=== PATIENT | male | born 1980 | race Two or more races ===

== ENCOUNTER 2024-08-01 21:44 | Emergency (ER) | payer MEDICAID, OTHER ==
[~2024-08-01] VITALS: Ht 190.5 cm; Wt 176.6 kg
--- NOTE | 2024-08-01 22:21 | ED.PDOC ---
Musculoskeletal HPI Comments 44 year old male presents to the ED with chief complaint of right leg swelling. 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 Patient relays that he started to experience right lower leg swelling and pain since earlier today. Patient denies any numb ness, weakness, chest pain, SOB, dizziness, or headache. Time Seen by MD: 22:15 Reviewed Notes: Nurses Notes, Medications, Allergies Allergies: Coded Allergies: Latex (Verified Allergy, Unknown, 08/01/24) Information Source: Patient Mode of Arrival: Ambulatory Location: Right Extremity Location: Leg Timing: Hours Prehospital treatment: None Severity: Moderate Able to Move Extremity: Yes Bear Weight: Limited Pain: Moderate Mechanism: Spontaneous Circumstances: Spontaneous Onset of Symptoms: Spontaneous Symptoms: Swelling, Pain DVT Risk Factors: DVT Last Tetanus: Unknown Past Medical History Past Medical History (Other): DVTs Surgical History: Denies all surgeries Family History Family History: Reviewed,noncontributory to illness Social History Smoker: Non-Smoker Alcohol: Denies ETOH Use Drugs: Denies Drug Use Lives In: Home Constitutional: denies: chills, diaphoresis, fatigue, fever, malaise, sweats, weakness, others EENTM: denies: blurred vision, double vision, ear bleeding, ear discharge, ear drainage, ear pain, ear ringing, eye pain, eye redness, hearing loss, mouth pain, mouth swelling, nasal discharge, nose bleeding, nose congestion, nose pain, photophobia, tearing, throat pain, throat swelling, voice changes, others Respiratory: denies: cough, hemoptysis, orthopnea, SOB at rest, shortness of breath, SOB with excertion, stridor, wheezing, others Cardiovascular: denies: chest pain, dizzy spells, diaphoresis, Dyspnea on exertion, edema, irregular heart beat, left arm pain, lightheadedness, palpitations, PND, syncope, others Gastrointestinal: denies: abdomen distended, abdominal pain, blood streaked bowels, constipated, diarrhea, dysphagia, difficulty swallowing, hematemesis, melena, nausea, poor appetite, poor fluid intake, rectal bleeding, rectal pain, vomiting, others Genitourinary: denies: burning, dysuria, flank pain, frequency, hematuria, incontinence, penile discharge, penile sore, pain, testicle pain, testicle swelling, urgency, others Neurological: denies: dizziness, fainting, headache, left sided numbness, left sided weakness, numbness, paresthesia, pre-existing deficit, right sided numbness, right sided weakness, seizure, speech problems, tingling, tremors, weakness, others Musculoskeletal: reports: others (Right lower leg pain and swelling); denies: back pain, gout, joint pain, joint swelling, muscle pain, muscle stiffness, neck pain Integumetry: denies: bruises, change in color, change in hair/nails, dryness, laceration, lesions, lumps, rash, wounds, others Allergic/Immunocompromised: denies: Difficulty Healing, Frequent Infections, Hives, Itching, others Hematologic/Lymphatic: denies: anemia, blood clots, easy bleeding, easy bruising, swollen glands, others Endocrine: denies: excessive hunger, excessive sweating, excessive thirst, excessive urination, flushing, intolerance to cold, intolerance to heat, unexplained weight gain, unexplained weight loss, others Psychiatric: denies: anxiety, bipolar disorder, depression, hopeless, panic disorder, schizophrenia, sleepless, suicidal, others All Other Systems: Reviewed and Negative Physical Exam General Appearance: No Apparent Distress, Normal HEENT: Normal ENT Inspection, PERRL/EOMI Neck: Full Range of Motion, Non-Tender, Normal, Normal Inspection Respiratory: Chest Non-Tender, Lungs Clear, No Accessory Muscle Use, No Respiratory Distress, Normal Breath Sounds Cardiovascular: No Edema, No JVD, No Murmur, No Gallop, Normal Peripheral Pulses, Regular Rate/Rhythm Breast Exam: Deferred Gastrointestinal: No Organomegaly, Non Tender, No Pulsatile Mass, Normal Bowel Sounds, Soft Genitalia: Deferred Pelvic: Deferred Rectal: Deferred Extremities: Normal capillary refill, Other (+ swelling to right lower extremity and tenderness to the right lower extremity. Distal pulses present.) Musculoskeletal : Apperance: Normal Neurologic: Alert, math teacher II-XII nml as Tested, No Motor Deficits, Normal Affect, Normal Mood, No Sensory Deficits Cerebellar Function: Normal Reflexes: Normal Skin: Dry, Normal Color, Warm Lymphatic: No Adenopathy Was a procedure done? Was a procedure done?: No Differential Diagnosis EXT Differential Diagnosis: Cellulitis, Deep Vein Thrombosis X-Ray, Labs, Meds, VS Vital Signs Date Time Temp Pulse Resp B/P (MAP) Pulse Ox O2 Delivery O2 Flow Rate FiO2 08/01/24 22:15 99.3 97 17 144/98 (113) 99 99.3 Lab Test 08/01/24 22:29 Range/Units White Blood Count 8.1 4.4-10.8 10^3/uL Red Blood Count 5.40 4.5-5.90 10^6/uL Hemoglobin 19.0 H 13.5-17.5 g/dL Hematocrit 56.9 H 41.0-53.0 % Mean Corpuscular Volume 105.4 H 80.0-100.0 fL Mean Corpuscular Hemoglobin 35.2 H 28.0-32.0 pg Mean Corpuscular Hemoglobin Concent 33.4 32.0-36.0 g/dL Red Cell Distribution Width 15.5 H 11.8-14.3 % Platelet Count 239 140-450 10^3/uL Mean Platelet Volume 7.4 6.9-10.8 fL Neutrophils (%) (Auto) 54.2 37.0-80.0 % Lymphocytes (%) (Auto) 35.0 10.0-50.0 % Monocytes (%) (Auto) 7.2 0.0-12.0 % Eosinophils (%) (Auto) 2.5 0.0-7.0 % Basophils (%) (Auto) 1.1 0.0-2.0 % Neutrophils # (Auto) 4.4 1.6-8.6 10 ^3/uL Lymphocytes # (Auto) 2.8 0.4-5.4 10 ^3/uL Monocytes # (Auto) 0.6 0-1.3 10 ^3/uL Eosinophils # (Auto) 0.2 0-0.8 10 ^3/uL Basophils # (Auto) 0.1 0-0.2 10 ^3/uL Nucleated Red Blood Cells 0.8 % Prothrombin Time 11.0 9.3-11.8 sec Prothrombin Time INR 1.04 0.9-1.15 D-Dimer, Quantitative 0.54 H 0.0-0.49 mg/L FEU Sodium Level 139 136-145 mmol/L Potassium Level 4.0 3.5-5.1 mmol/L Chloride Level 107 98-107 mmol/L Carbon Dioxide Level 23 20-31 mmol/L Anion Gap 9 5-15 Blood Urea Nitrogen 11 9-23 mg/dL Creatinine 1.00 0.700-1.30 mg/dL Glomerular Filtration Rate Calc 96 >90 mL/min BUN/Creatinine Ratio 11.0 10.0-20.0 Serum Glucose 86 74-106 mg/dL Calcium Level 10.0 8.7-10.4 mg/dL X-Ray, Labs, Meds, VS Comment Positive DVT in right lower extremity. Continue with the medications as prescribed Time of 1ST Reevaluation: 23:15 Reevaluation 1ST: Improved Patient Education/Counseling: Diagnosis, Treatment, Need For Follow Up (Follow up in the emergency department in the next 24-48 hours if symptoms worsen. It was advised to follow up with your primary care doctor in the next 3-4 days for further evaluation.) Family Education/Counseling: No Family Present Departure 1 Departure Time of Disposition: 00:26 Impression: Primary Impression: Right leg DVT Qualified Codes: I82.431 - Acute embolism and thrombosis of right popliteal vein Disposition: HOME / SELF CARE / HOMELESS Condition: Fair Discharged With: Self Critical Care Note Critical Care Time?: No Stability Stability form required: No Heart Score Heart Score: Heart Score Response (Comments) Value History N/A 0 EKG N/A 0 Age N/A 0 Risk Factors N/A 0 Troponin N/A 0 Total 0 I personally scribed for KATRINA ORTEGA ([email or web address]) on 08/01/24 at 22:21. Electronically submitted by Guero Sánchez ([email or web address]). KATRINA ORTEGA Aug 01, 2024 22:21
[2024-08-01 22:43] LABS: Basophils # (auto) 0.1 10 ^3/uL (0-0.2); Basophils % (auto) 1.1 % (0.0-2.0); Eosinophils # (auto) 0.2 10 ^3/uL (0-0.8); Eosinophils % (auto) 2.5 % (0.0-7.0); Hematocrit 56.9 % (41.0-53.0); Lymphocytes # (auto) 2.8 10 ^3/uL (0.4-5.4); Mean Corpuscular Hemoglobin 35.2 pg (28.0-32.0); Mean Corpuscular Hgb Conc. 33.4 g/dL (32.0-36.0); Mean Corpuscular Volume 105.4 fL (80.0-100.0); Monocytes # (auto) 0.6 10 ^3/uL (0-1.3); Monocytes % (auto) 7.2 % (0.0-12.0); Neutrophils # (auto) 4.4 10 ^3/uL (1.6-8.6); Neutrophils % (auto) 54.2 % (37.0-80.0); Nucleated Red Blood Cells % 0.8 %; Platelet Count (auto) 239 10^3/uL (140-450); Red Cell Distribution Width 15.5 % (11.8-14.3); White Blood Cell 8.1 10^3/uL (4.4-10.8)
[2024-08-01 22:50] LABS: Chloride 107 mmol/L (98-107); Sodium 139 mmol/L (136-145)
[2024-08-01 22:51] LABS: Anion Gap 9 (5-15); Carbon Dioxide 23 mmol/L (20-31)
[2024-08-01 22:56] LABS: Blood Urea Nitrogen 11 mg/dL (9-23); Glucose 86 mg/dL (74-106)
[2024-08-01 23:02] LABS: INR 1.04 (0.9-1.15)
--- NOTE | 2024-08-02 00:07 | DVH ---
Right lower extremity venous duplex Clinical History: swelling Comparison: None Technique: Duplex Doppler evaluation of the deep venous system of the right lower extremity from the common femo ral vein to the popliteal vein including color Doppler and spectral/pulsed waveform analysis was perf ormed. Findings: The common femoral vein demonstrates appropriate compressibility and waveform variability. There is compressibility/patency of the great saphenous vein at the proximal thigh. The femoral vein demonstrates evidence of occlusive thrombus in the mid to distal superficial femoral vein. The popliteal vein demonstrates evidence of thrombus. There is normal compressibility at the tibioperoneal trunk. Impression: Evidence of thrombus in mid to distal right superficial femoral vein extending into popiteal vein.
[2024-08-02 00:57] VITALS: BP 147/98; TEMP 98.3
[2024-08-02 01:00] VITALS: PULSE 86; RESP 26; O2SAT 98
[2024-08-02] MEDS ORDERED: APIX5TAB PO (01:07)
== END 2024-08-02 01:15 | disposition home or self-care (01) ==
LOC: ER 21:44
DX: I82.431 Acute embolism and thrombosis of right popliteal vein (principal); Z88.8 Allergy status to other drugs, medicaments and biological substances
CPT/HCPCS: 36415; 80048; 85025; 85379; 85610; 93971

== ENCOUNTER 2025-01-10 15:39 | Emergency (ER) | payer SELFPAY ==
[~2025-01-10] VITALS: Ht 190.5 cm; Wt 175.0 kg
[~2025-01-10 15:39] MED LIST: APIX5TAB PO
--- NOTE | 2025-01-10 16:00 | ECG ---
[facility] Test Date: 2025-01-10 Test Time: 15:54:49 Pat Name: JANELL PHOENIX Department: [facility] ED Patient ID: [facility]-[id number] Room: Gender: Chief Ultrasound Technologist: LACHELLE : 1980 Requested By: LUCERO DAS Order Number: [id number] Reading MD: Shine Callejas Measurements Intervals Upson Rate: 90 P: 38 LA: 153 QRS: -11 QRSD: 101 T: 41 QT: 381 QTc: 467 Interpretive Statements Sinus rhythm Electronically Signed On 01-10-2025 17:03:14 PDT by Shine Callejas Please click the below link to view image of tracing.
[2025-01-10] MEDS: HYDROcodone-ACET 5/325MG TAB PO ONE (16:15)
--- NOTE | 2025-01-10 16:19 | ED.PDOC ---
Musculoskeletal HPI Comments HPI: 44 y/o M, with PMHx of DVT's and HTN presents to the ED for CC of left upper extremity pain. Patient states, he has been experiencing left-upper arm pain sudden onset, 0800 last night (01/09/25). Patient reports, pain to ravel from him shoulder down to his fingertips with a numbness sensation to the fingers only. At this time patient is unable to move his left arm against gravity and has limited ROM. Patient denies any trauma, injury, or fall. No other symptoms or modifying factors are present at this time. Initial Vitals BP:130/90 HR:91 RR:20 O2 Sat:95% Temp:98.2 Past Medical history: DVT's, HTN Past Surgical history: Right Leg Medications: Eliquis Social History: Denies smoking, ETOH, and drug use. Allergies: NKDA PHOENIX: L SHOULDE PAIN ARM PAIN. NO TRAUMA NO FALL NO WEAKNESS. ON ELIQUIS. HPI: Poor Historian. Denies any chest pain or shortness of breath. Patient complains specifically of left shoulder pain radiating to the left arm. Worse with movement. Denies any weakness in the extremity. Patient is compliant with his Eliquis. Past Medical History: Past Surgical History: REVIEW OF SYSTEMS: CONSTITUTIONAL: Denies acute: fever, diaphoresis, chills, generalized weakness. HEAD: Denies acute: headache, photophobia Eyes: Denies acute: Double vision, vision loss, eye pain, eye discharge. EARS: Denies acute: tinnitus, hearing loss, ear discharge, ear pain, THROAT: Denies acute: sore throat, swelling, difficulty swallowing , pain with swallowing, change in voice. NECK: Denies acute: neck pain, neck swelling, stiff neck. HEART: Denies acute : chest pain, palpitations, LUNGS: Denies acute: SOB, wheezing, cough, hemoptysis ABDOMEN: Denies acute: abdominal pain, Nausea, Vomiting, diarrhea, melena , hematemesis, hematochezia SKIN: Denies acute: rash, redness, lesions, itchiness. EXTREMITIES: Denies acute: calf pain, numbness, tingling, weakness, Denies acute: Low back pain. Neuro: Denies acute: focal neurological deficit, motor or sensory focal neurological deficit, tremors, seizure like activity, confusion, dizziness, change in mental status, loss of bowel or bladder function, cauda equina like symptoms. : Denies acute: dysuria, hematuria, flank pain, increase in urinary frequency. PSYCH: Denies acute: hallucination, suicidal ideation, homicidal ideation. PHYSICAL EXAM: General: -----moderate---acute distress, awake and alert. Head: normocephalic, atraumatic. Neck: supple, trachea is midline, no swelling. Throat: Normal phonation. Eyes:, no erythema, no purulent discharge, no proptosis, no icterus. Heart: regular rate, regular rhythm, no significant murmur appreciated. Lungs: no apparent respiratory distress, Able to speak in full sentences. No wheezing, no rhonchi, no crackles. No stridors Clear to auscultation bilaterally. Abdomen: non tender to palpation, non distended, soft, no guarding, no rebound, + bowel sounds. Obese Neuro: Awake, Alert, oriented to name, self, situation, follows commands GCS=15. Speech is normal. Skin: no petechia, no purpura, no cyanosis, non-pale, not jaundice. Lower extremities: --trace bilateral- Pitting edema no deformity, no focal swelling, no calf TTP. Makes eye contact. moves all four extremities. Face: no apparent facial droop. Ambulating in the ED independently. Patient of the left upper extremity where the area of complaint is: Normal muscle strength however patient has left shoulder tenderness to palpation. No a pparent swelling or erythema. Patient is neurovascularly intact in the affected extremity. Sensory and motor are present. Radial pulses palpable. Good fermenter helper muscle. Decreased range of motion of the left upper extremity secondary to shoulder pain. No nuchal rigidity, Kernig's sign, Brudzinski's sign, no meningeal signs. ED COURSE: DISCLAIMER: This medical document was created using an electronic medical record system with voice recognition software and computerized dictation system. Although this document has been carefully reviewed, there might still be some phonetic and typographical errors. Occasional wrong-word or "sound-alike" substitutions may have occurred due to the inherent limitations of voice recognition software. These areas are purely typographical due to imperfections of the software programs and do not reflect any compromise in the patient's medical care. Please read the chart carefully and recognize, using context, where these substitutions have occurred. Chief Complaint: Upper Extremity Time Seen by MD: 16:00 Reviewed Notes: Nurses Notes, Medications, Allergies Allergies: Coded Allergies: Latex (Verified Allergy, Unknown, 08/01/24) Home Meds Active Scripts Apixaban Base (ELIQUIS) 5 Mg Tab, 5 MG PO BID for 30 Days, #60 TAB Prov:GIANNA ORTEGALEILA DAVENPORT 08/02/24 Information Source: Patient Mode of Arrival: Ambulatory Location: Left Extremity Location: Arm Timing: Hours Prehospital treatment: None Severity: Moderate Able to Move Extremity: Yes Bear Weight: Limited Pain: Moderate Mechanism: Spontaneous Circumstances: Spontaneous Onset of Symptoms: Spontaneous Symptoms: Pain DVT Risk Factors: DVT Last Tetanus: Unknown Associated signs and symptoms: Arm pain Was a procedure done? Was a procedure done?: No Differential Diagnosis EXT Differential Diagnosis: Deep Vein Thrombosis, Sprain, Dislocation, Bursitis X-Ray, Labs, Meds, VS Vital Signs Date Time Temp Pulse Resp B/P (MAP) Pulse Ox O2 Delivery O2 Flow Rate FiO2 01/10/25 15:54 90 01/10/25 15:41 98.2 91 20 130/90 95 98.2 Lab Test 01/10/25 17:36 01/10/25 16:37 Range/Units Troponin I High Sensitivity < 3 L < 3 L </=54 ng/L White Blood Count 7.9 4.4-10.8 10^3/uL Red Blood Count 5.50 4.5-5.90 10^6/uL Hemoglobin 20.0 H 13.5-17.5 g/dL Hematocrit 57.7 H 41.0-53.0 % Mean Corpuscular Volume 105.0 H 80.0-100.0 fL Mean Corpuscular Hemoglobin 36.4 H 28.0-32.0 pg Mean Corpuscular Hemoglobin Concent 34.7 32.0-36.0 g/dL Red Cell Distribution Width 14.9 H 11.8-14.3 % Platelet Count 220 140-450 10^3/uL Mean Platelet Volume 7.5 6.9-10.8 fL Neutrophils (%) (Auto) 66.0 37.0-80.0 % Lymphocytes (%) (Auto) 24.9 10.0-50.0 % Monocytes (%) (Auto) 6.6 0.0-12.0 % Eosinophils (%) (Auto) 1.9 0.0-7.0 % Basophils (%) (Auto) 0.6 0.0-2.0 % Neutrophils # (Auto) 5.2 1.6-8.6 10 ^3/uL Lymphocytes # (Auto) 2.0 0.4-5.4 10 ^3/uL Monocytes # (Auto) 0.5 0-1.3 10 ^3/uL Eosinophils # (Auto) 0.2 0-0.8 10 ^3/uL Basophils # (Auto) 0 0-0.2 10 ^3/uL Nucleated Red Blood Cells 1.0 % D-Dimer, Quantitative 0.37 0.0-0.49 mg/L FEU Sodium Level 138 136-145 mmol/L Potassium Level 4.3 3.5-5.1 mmol/L Chloride Level 105 98-107 mmol/L Carbon Dioxide Level 22 20-31 mmol/L Anion Gap 11 5-15 Blood Urea Nitrogen 6 L 9-23 mg/dL Creatinine 0.78 0.700-1.30 mg/dL Glomerular Filtration Rate Calc 114 >90 mL/min BUN/Creatinine Ratio 7.7 L 10.0-20.0 Serum Glucose 88 74-106 mg/dL Calcium Level 9.2 8.7-10.4 mg/dL Total Bilirubin 2.2 H 0.2-1.0 mg/dL Aspartate Amino Transferase (AST) 40 13-40 U/L Alanine Aminotransferase (ALT) 34 7-40 U/L Alkaline Phosphatase 75 46-116 U/L Total Protein 8.4 H 5.7-8.2 g/dL Albumin 4.7 3.2-4.8 g/dL Current Medications Medications (Trade) Dose Ordered Sig/Law Route Start Time Stop Time Status Last Admin Acetaminophen/ Hydrocodone Bitart ([place] 5/325MG Tab) 1 tab ONCE ONCE PO 01/10/25 16:15 01/10/25 16:16 DC 01/10/25 16:[address] [address] Ph: [phone] DIAGNOSTIC IMAGING Diagnostic Imaging Report : [id number] Signed PATIENT: JANELL PHOENIX ACCT: [id number] UNIT: [id number] : 1980 LOC: ER ROOM / BED: / AGE / SEX: 44 / M ADM STATUS: REG ER SERVICE 1613 ORDERING PHYSICIAN: LUCERO DAS DO PROCEDURE(s): LSHD2 - L SHOULDER 2+ VIEW XRAY REASON: L SHOULDER PAIN ORDER NUMBER(s): [id number], ACCESSION NUMBER(s): [id number] CLINICAL INDICATION: L SHOULDER PAIN TECHNIQUE: 3 radiographic views of the left shoulder were obtained. Comparison: None FINDINGS/IMPRESSION: Normal bony alignment No fracture or dislocation No abnormal soft tissue calcifications. ATED BY: SALINA ROSS Jr., DO DICTATED DATE/TIME: 01/10/25 1640 SIGNED BY: SALINA ROSS Jr., SIGNED DATE/TIME: 01/10/25 1640 CC: Time of 1ST Reevaluation: 16:30 Reevaluation 1ST: Unchanged Patient Education/Counseling: Diagnosis, Treatment Family Education/Counseling: No Family Present Departure 1 Departure Time of Disposition: 19:10 Impression: Primary Impression: Left shoulder pain Disposition: 01 HOME / SELF CARE / HOMELESS Condition: Stable Additional Instructions: Additional instructions: Please read all instructions provided in this packet carefully. You MUST follow-up with your primary care/family doctor in 1 to 2 days. If you are unable to see your primary care/family doctor, please return to our emergency room for re-assessment and re-evaluation in 1 to 2 days. Return to the emergency room here in our facility or to the nearest ER [facility] if your symptoms change or worsen. CONSULTATIONS: you MUST Follow-up for consultation as soon as possible with: -orthopedic doctor in 1-2 days. Please call for appointment You MUST call the consultants office yourself to make an appointment. You may need to arrange that through your insurance and/or your primary/family doctor. If you are unable to see the telecommunications consultant in 1 to 2 days, you must return to our emergency room (or any other ER of your choice) for re-assessment and re- evaluation. Adequate fluid hydration. Although you have been discharged from the Emergency Department, this does not mean that you have a "clean bill of health". No definitive diagnosis for your symptoms has been made today. It is possible that you are in the process of developing a serious illness. This is why you must return to the ED without fail if any new or worsening symptoms develop. Below is a copy of your radiological report for follow up: [address] [address] Ph: [phone] DIAGNOSTIC IMAGING Diagnostic Imaging Report : [id number] Signed PATIENT: JANELL PHOENIX ACCT: [id number] UNIT: [id number] : 1980 LOC: ER ROOM / BED: / AGE / SEX: 44 / M ADM STATUS: REG ER SERVICE 1613 ORDERING PHYSICIAN: LUCERO DAS DO PROCEDURE(s): LSHD2 - L SHOULDER 2+ VIEW XRAY REASON: L SHOULDER PAIN ORDER NUMBER(s): [id number], ACCESSION NUMBER(s): [id number] CLINICAL INDICATION: L SHOULDER PAIN TECHNIQUE: 3 radiographic views of the left shoulder were obtained. Comparison: None FINDINGS/IMPRESSION: Normal bony alignment No fracture or dislocation No abnormal soft tissue calcifications. ATED BY: SALINA ROSS Jr., DO DICTATED DATE/TIME: 01/10/25 1640 SIGNED BY: SALINA ROSS Jr., SIGNED DATE/TIME: 01/10/25 1640 CC: Discharged With: Self Critical Care Note Critical Care Time?: No I personally scribed for LUCERO DAS DO ([email or web address]) on 01/10/25 at 16:19. Electronically submitted by Thalia Ramon ([email or web address]). I personally scribed for LUCERO DAS DO ([email or web address]) on 01/10/25 at 16:47. Electronically submitted by Thalia Ramon ([email or web address]). I personally scribed for LUCERO DAS DO ([email or web address]) on 01/10/25 at 19:12. Electronically submitted by Thalia Ramon [email or web address]). LUCERO DAS DO Jan 10, 2025 16:19
--- NOTE | 2025-01-10 16:43 | DVH ---
CLINICAL INDICATION: L SHOULDER PAIN TECHNIQUE: 3 radiographic views of the left shoulder were obtained. Comparison: None FINDINGS/IMPRESSION: Normal bony alignment No fracture or dislocation No abnormal soft tissue calcifications.
[2025-01-10 17:04] LABS: Hemoglobin 20.0 g/dL (13.5-17.5); Mean Corpuscular Hemoglobin 36.4 pg (28.0-32.0); Mean Corpuscular Volume 105.0 fL (80.0-100.0); Nucleated Red Blood Cells % 1.0 %
[2025-01-10 17:05] LABS: Hematocrit 57.7 % (41.0-53.0)
[2025-01-10 17:20] LABS: Alanine Aminotransferase 34 U/L (7-40); Alkaline Phosphatase 75 U/L (46-116); Calcium 9.2 mg/dL (8.7-10.4); Carbon Dioxide 22 mmol/L (20-31); Chloride 105 mmol/L (98-107)
[2025-01-10 17:21] LABS: Albumin 4.7 g/dL (3.2-4.8); Anion Gap 11 (5-15); BUN/Creatinine Ratio 7.7 (10.0-20.0); Bilirubin, Total 2.2 mg/dL (0.2-1.0); Blood Urea Nitrogen 6 mg/dL (9-23); Glucose 88 mg/dL (74-106); Potassium 4.3 mmol/L (3.5-5.1); Sodium 138 mmol/L (136-145); Total Protein 8.4 g/dL (5.7-8.2)
[2025-01-10 19:25] VITALS: BP 126/88; PULSE 82; RESP 18; TEMP 98.4; O2SAT 97
[2025-01-10] MEDS: KETOROLAC TROMETH 60MG/2ML VIAL IM ONE (19:28)
== END 2025-01-10 19:32 | disposition home or self-care (01) ==
LOC: ER 15:39
DX: M25.512 Pain in left shoulder (principal); I10 Essential (primary) hypertension; Z86.718 Personal history of other venous thrombosis and embolism; Z91.040 Latex allergy status
CPT/HCPCS: 36415; 73030; 80053; 84484; 85025; 85379; 93005; 96372; 99285; J1885